=== PATIENT | female | born 1935 | race Caucasian/White ===

== ENCOUNTER 2017-11-01 06:16 | Day surgery (SDC) | payer MEDICARE, BC ==
[2017-10-25 12:00] VITALS: BMI 34.7
[~2017-11-01 06:16] MED LIST: ALPRAZolam 0.25 MG TAB PO PRN; ALPRAZolam 0.5 MG TAB PO PRN; ASPIRIN 325 MG TAB PO STA; ATORVASTATIN 80 MG TAB PO STA; NITROGLYCERIN SL TABS 0.4 MG TAB SUBLINGUAL PRN; SODIUM CHLORIDE 0.9% 1,000 ML in EMPTY BAG 1 BAG IV ONE
[2017-11-01 07:11] VITALS: PULSE 71; RESP 20; TEMP 98.3
[2017-11-01] MEDS ORDERED: HEPARIN SODIUM 1,000 UN/ML (10ML VL) ONE (07:32)
[2017-11-01] MEDS ORDERED: diphenhydrAMINE 50 MG/ML 1 ML VIAL ONE (07:32)
[2017-11-01] MEDS ORDERED: fentaNYL (PF) 50 MCG/ML 2 ML AMP ONE (07:32)
[2017-11-01] MEDS ORDERED: fentaNYL (PF) 50 MCG/ML 2 ML AMP IVP ONE (07:42)
[2017-11-01] MEDS ORDERED: diphenhydrAMINE 50 MG/ML 1 ML VIAL IVP ONE (07:42)
[2017-11-01] MEDS ORDERED: LIDOCAINE 2% INJ 20 MG/ML SQ ONE (07:43)
[2017-11-01] MEDS ORDERED: VERAPAMIL SYRINGE (5 MG/10 ML) INTRAARTER ONE (07:45)
[2017-11-01] MEDS ORDERED: HEPARIN SODIUM 1,000 UN/ML (10ML VL) IV ONE (07:56)
[2017-11-01] MEDS ORDERED: IOPAMIDOL-370 125ML BTL INJ ONE (07:57)
[2017-11-01] MEDS ORDERED: SODIUM CHLORIDE 0.9% 1,000 ML IV SCH (08:15)
[2017-11-01] MEDS ORDERED: RX INFO: IV CONTRAST WAS GIVEN 1 EACH MISC MISCELLANE PRN (08:15)
[2017-11-01] MEDS ORDERED: HYDROcodone/APAP 10-325MG 1 EACH TAB PO PRN (08:16)
--- NOTE | 2017-11-01 08:29 | CC ---
CARDIAC CATHETERIZATION REPORT Mrs. Carmen is an 82-year-old female with known history of hypertension, hyperlipidemia, who has been complaining of symptoms of chest discomfort. She has underwent myocardial perfusion imaging that revealed partial reversible anterior and anteroseptal wall defect. In view of that, recommendation was made regarding cardiac catheterization. The procedure as well as the risks and the complications were discussed with the patient who is in full understanding and agreement. PROCEDURE: Patient was brought to veterinarian laboratory animal care in a fasting semi-sedated state after receiving fentanyl and Benadryl and achieving moderate conscious sedated state. Using Xylocaine anesthesia in the Seldinger technique, a 6-[place]inean sheath was introduced in the right radial artery. Selective right and left coronary angiography was attempted using 5- [place] 3.5 bend right and left Licha catheter, but there was inability to advance the catheter because of severe tortuosity. At that point, a 6-[place] Aldo catheter was introduced and images of the coronary arteries were obtained. Following that, catheter and sheath were removed. Hemostasis was obtained with deployment of a TR band. There was no immediate complication. Patient was returned to her room in stable condition. Of note, the patient received 4500 units of intravenous heparin as well as intra- arterial verapamil. FINDINGS: FLUOROSCOPY: There was calcification involving the proximal LAD. LEFT MAIN: This is a large-sized vessel bifurcating in the left circumflex, left anterior descending artery. Left main coronary artery has no evidence of obstructive coronary artery disease. LEFT ANTERIOR DESCENDING ARTERY: This is a large-sized vessel reaching toward the apex with a wrap around apex segment giving rise to 2 diagonal branches after the takeoff of the first diagonal branch. There is a 40% plaque. There is another plaque in the mid distal segment in the tortuous area of about 40% to 50%. The rest of the vessel has no high-grade stenosis. LEFT CIRCUMFLEX: This is a nondominant vessel giving rise to 3 obtuse marginal branches. The third one is the largest in caliber. The left circumflex as well as branches have no evidence of obstructive coronary artery disease. RIGHT CORONARY ARTERY: This is a large dominant vessel bifurcating distally PDA and posterolateral segment and branches. The right coronary artery and mid segment has a plaque of about 30%. The rest of the vessel has no high-grade stenosis. LEFT VENTRICULOGRAM: Left ventriculogram is not performed. 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 RECOMMENDATION: In view of finding anatomy, I recommend to continue medical therapy with aggressive coronary risk modification that has been initiated. Those findings and recommendation were discussed with the patient and her family and they are in full understanding and agreement. DURATION OF PROCEDURE: 16 minutes. VIRAL / LEAH: [id number] /
--- NOTE | 2017-11-01 08:35 | LTR ---
November 01, 2017 Re: KermitNohemi Dear Dr. Serrato: I had the opportunity to performed cardiac catheterization on Mrs. Carmen at [facility] on the 01 of November and a full copy of the procedure note will be forwarded to you. In brief, she was found to have mild to moderate disease involving the LAD and the right coronary artery. Based on this finding, I recommend to continue medical therapy with aggressive coronary risk modifications being initiated. Thank you again for allowing me the opportunity to participate in her care. Please feel free to call me for any questions. Sincerely yours, MD SEGUNDO RatliffL / DAILYN: [id number] /
[2017-11-01] MEDS ORDERED: NON-FORMULARY DRUG (Vitamin B Complex [Vitamin B Complex] 1 EACH) PO SCH (09:00)
[2017-11-01] MEDS ORDERED: amLODIPine 5 MG TAB PO SCH (09:00)
[2017-11-01] MEDS ORDERED: OXYBUTYNIN CHLORIDE 5 MG TAB PO SCH (09:00)
[2017-11-01] MEDS ORDERED: ISOSORBIDE MONONITRATE ER 30 MG TAB.ER.24H PO SCH (09:00)
[2017-11-01] MEDS ORDERED: ASPIRIN 81 MG PO SCH (09:00)
[2017-11-01] MEDS ORDERED: VITAMIN E 400 UNIT PO SCH (09:00)
[2017-11-01] MEDS ORDERED: DULoxetine HCL 60 MG CAPSULE.DR PO SCH (09:00)
[2017-11-01] MEDS ORDERED: METOPROLOL TARTRATE 25 MG TAB PO SCH (09:00)
[2017-11-01] MEDS ORDERED: VENLAFAXINE HCL 100 MG PO SCH (09:00)
[2017-11-01 14:44] VITALS: BP 127/58
[2017-11-01] MEDS ORDERED: ATORVASTATIN 20 MG TAB PO SCH (21:00)
== END 2017-11-01 13:10 | disposition home or self-care (01) ==
LOC: CATHCVL 06:16
PROVIDERS: ATTEND Internal Medicine Interventional Cardiology
DX: I25.10 Atherosclerotic heart disease of native coronary artery without angina pectoris (principal); I25.84 Coronary atherosclerosis due to calcified coronary lesion; I10 Essential (primary) hypertension; I77.1 Stricture of artery; E78.2 Mixed hyperlipidemia; Z79.82 Long term (current) use of aspirin; Z79.899 Other long term (current) drug therapy; Z88.0 Allergy status to penicillin
CPT/HCPCS: 93454; C1894; C1769; J2001; J1200; J3010; J1644; Q9967